=== PATIENT | male | born 1975 | race Caucasian/White ===

== ENCOUNTER → 2017-01-25 | Outpatient (CLI) | payer OTHER ==
--- NOTE | 2017-01-25 14:55 | DIAGNOSTIC IMAGING REPORT ---
PROCEDURE: US SCROTUM/TESTICLE INDICATION: Left scrotal/testicular pain. TECHNIQUE: Alonso scale and color Doppler sonographic images through the scrotum were obtained. COMPARISON: None. FINDINGS: RIGHT TESTICLE: Right testicle is of normal size (5.4 x 2.7 cm) with normal vascularity. Right epididymis is of normal size with a 6 mm epididymal cyst. LEFT TESTICLE: Left testicle is of normal size (5.0 x 3.1 cm) with normal vascularity. Left epididymis is mildly prominent (when compared to the). In addition, there are two left epididymal cyst (1.2 and 1.1 cm). IMPRESSION: 1. Normal testicles. No evidence of torsion. 2. Normal right epididymis with a 6 mm right epididymal cyst (incidental finding). 3. Mild prominence/enlargement of the left epididymis with two left epididymal cyst (1.2 cm, 1.1 cm). Findings suggest left epididymitis. 4. Findings called to Dr. Deven Lee.
== END ==
LOC: US SRH 13:53
DX: N50.3 Cyst of epididymis (principal)